=== PATIENT | female | born 1985 | race Caucasian/White ===

== ENCOUNTER 2018-07-21 20:17 | Emergency (ER) | payer BC, MEDICAID | END 2018-07-22 02:24 | disposition home or self-care (01) | LOC: FTE 20:17 | DX: S69.92XA Unspecified injury of left wrist, hand and finger(s), initial encounter (principal); I10 Essential (primary) hypertension; W23.0XXA Caught, crushed, jammed, or pinched between moving objects, initial encounter; Y92.9 Unspecified place or not applicable | CPT/HCPCS: 29130; 73140; 99283-25 ==